=== PATIENT | female | born 1970 | race Caucasian/White ===

== ENCOUNTER → 2020-05-10 10:00 | Outpatient (BNVA) | payer MEDICAID, SELFPAY | PROVIDERS: Family Provider Family Medicine; PCP Family Medicine; Visit Provider Internal Medicine | DX: B18.2 Chronic viral hepatitis C (principal); B19.20 Unspecified viral hepatitis C without hepatic coma; R10.11 Right upper quadrant pain; R76.8 Other specified abnormal immunological findings in serum; E78.5 Hyperlipidemia, unspecified; A08.4 Viral intestinal infection, unspecified | CPT/HCPCS: 80053; 85025; 87522; 87902 ==

== ENCOUNTER 2020-05-15 08:29 | Day surgery (SDC) | payer MEDICAID, SELFPAY ==
[2020-05-12 15:17] VITALS: BMI 31.6
[2020-05-15 08:41] VITALS: BP 128/96; PULSE 90; RESP 18; TEMP 37.1; O2SAT 96
[2020-05-15] MEDS: sodium chloride 0.9% 1,000 ML 30 ML IV (08:54)
--- NOTE | 2020-05-15 09:27 | ANES.PREANE2 ---
Pre-Anesthetic Assessment Pre-Anesthetic Assessment: Height/Weight: Height 1.65 m Weight 86.183 kg Temp Pulse Resp BP Pulse Ox 98.7 F 90 18 128/96 96 05/15/20 08:41 05/15/20 08:41 05/15/20 08:41 05/15/20 08:41 05/15/20 08:41 Preop Diagnosis: RUQ pain Proposed Procedure: Operation Date: 05/15/20 10:00 Proposed Procedures p EGD 22696 R10.11(Not Applicable) - Pablo Reyes MD Last intake: Intake Last Liquid Date 05/14/20 Last Liquid Time 23:30 Last Solid Date 05/14/20 Last Solid Time 20:30 Social: Social History: Tobacco and No alcohol Exam: Pre-Anes Outpt Exam: alert, oriented x 3, clear to auscultation bilaterally and regular rate & rhythm Airway: Submandibular: WNL Cervical ROM: WNL MP: 2 Dentition: Other (very poor) History/ROS: No significant history except as noted Pulmonary: Pulmonary: None reported CV/HEM: CV/HEM: Murmur : : None reported Hepatic: Hepatic: Hepatitis (C) GI: GI: GERD (occ) Metabolic: Metabolic: None reported Musc/skel: Musc/skel: Lower Back Pain and OA/DJD Neuropsych: Neuropsych: Anxiety and Depression Anesthetic Plan: ASA status: 3 Anesthesia: Anesthesia Evaluation and MAC Risk of > 500 ml blood loss (7ml/kg in children): No Meds/Allergies Current Medications: Current Medications Generic Name Dose Route Start Last Admin Trade Name Freq PRN Reason Stop Dose Admin Sodium Chloride 1,000 mls @ 30 ml s/hr 05/15/20 08:45 05/15/20 08:54 Sodium Chloride 0.9% IV 30 mls/hr .Q24H ANGELES Administration PFSH Anesthesia PFSH: Social History (Updated 05/10/20 @ 09:14 by EDDIE Reyes) Smoking and tobacco status: current every day smoker Marital status: / Number of children: 4 service: No History of recent travel: No Current gender identity: Female Data Anesthesia Cardiac Studies: No Data to Display
[2020-05-15 10:34] VITALS: BP 106/77; PULSE 75; RESP 16; TEMP 36.7; O2SAT 97
--- NOTE | 2020-05-15 10:41 | ANE.PACU2 ---
Inpatient post-anesthesia follow up: Airway intact: Yes Vital signs: Temperature 98.0 F Pulse Rate 75 Respiratory Rate 16 Blood Pressure 106/77 Pulse Oximetry 97 Oxygen Delivery Me thod Nasal Cannula Oxygen Flow Rate 2.0 Fraction of Inspir ed Oxygen Hydration adequate: Yes Nausea and vomiting: No Mental status: Baseline
[2020-05-15 10:49] VITALS: BP 132/74; PULSE 70; RESP 18; O2SAT 99
--- NOTE | 2020-05-17 12:31 | W.PM.OPSUD ---
Surgery/Procedure H&P Update DATE OF PROCEDURE: May 17, 2020 DATE H&P PERFORMED: 05/10/20 PREOP DIAGNOSIS: RUQ pain PLANNED PROCEDURE: Operation Date: 05/15/20 10:00 Proposed Procedures p EGD 19512 R10.11(Not Applicable) - Pablo Reyes MD
== END 2020-05-15 10:55 | disposition home or self-care (01) ==
PROVIDERS: Visit Provider Internal Medicine
PROC: 0DJ08ZZ Inspection of Upper Intestinal Tract, Via Natural or Artificial Opening Endoscopic (ICD-10-PCS; CPT 43235; principal; 2020-05-15 10:00)
DX: R10.11 Right upper quadrant pain (principal); B19.20 Unspecified viral hepatitis C without hepatic coma; K21.9 Gastro-esophageal reflux disease without esophagitis; M19.90 Unspecified osteoarthritis, unspecified site
CPT/HCPCS: 12345; 43235; J2001; J2704; J7030

== ENCOUNTER 2020-06-07 06:46 | Outpatient (CLI) | payer MEDICAID, SELFPAY ==
--- NOTE | 2020-06-07 08:00 | US_ITS ---
WS: [id number] RIGHT UPPER QUADRANT ULTRASOUND HISTORY: Nausea and vomiting. RIGHT upper quadrant pain, hepatitis C. COMPARISON: 04/06/2019 Liver: 15.5 cm in length. Normal size and echogenicity with no intrahepatic dilatation. No mass. Gallbladder: Normally distended gallbladder with no stones or wall thickening. CBD: 0.6 cm Pancreas: Normal size and echogenicity. Right kidney: 12.7 cm in length. Extrarenal pelvis on the RIGHT. No hydronephrosis or mass. Aorta and IVC: Unremarkable. No ascites. US/US gall bladder [id number] IMPRESSION: 1. Normal gallbladder. 2. Normal liver. 3. Common bile duct is top normal size.
== END 2020-06-07 06:47 | disposition home or self-care (01) ==
LOC: RAD 06:48
PROVIDERS: PCP Nurse Practitioner; Visit Provider Internal Medicine
DX: R10.11 Right upper quadrant pain (principal); R11.2 Nausea with vomiting, unspecified; B19.20 Unspecified viral hepatitis C without hepatic coma
CPT/HCPCS: 76705

== ENCOUNTER → 2020-07-20 16:10 | Outpatient (BNVA) | payer MEDICAID, SELFPAY | PROVIDERS: PCP Nurse Practitioner; Visit Provider Internal Medicine | DX: B18.2 Chronic viral hepatitis C (principal) | CPT/HCPCS: 87522 ==

== ENCOUNTER 2020-08-23 15:23 | Emergency (ER) | payer MEDICAID, SELFPAY ==
[2020-08-23 15:41] VITALS: BP 131/97; PULSE 103; RESP 18; TEMP 37.6; O2SAT 96; BMI 33.3
--- NOTE | 2020-08-23 15:48 | XRR_ITS ---
PROCEDURE INFORMATION: Exam: XR Chest, 1 View Exam date and time: 08/23/2020 4:14 PM Age: 50 years old Clinical indication: Cough TECHNIQUE: Imaging protocol: XR of the chest Views: Frontal portable upright view of the chest. COMPARISON: No relevant prior studies available. FINDINGS: Lungs: The lungs are clear bilaterally. The pulmonary vasculature is normal. Pleural space: No pleural effusion. No pneumothorax. Heart/Mediastinum: The heart is normal in size and contour. Bones/joints: No acute chest wall abnormality identified. XR/XR chest 1V portable [id number] IMPRESSION: No acute cardiopulmonary abnormality identified.
--- NOTE | 2020-08-23 15:55 | W.ED.GENADLT ---
HPI - General Adult General: Chief complaint: General Medical Stated complaint: COUGH/FEVER/CHILLS/THROAT PAIN/RUNNY NOSE Time Seen by Provider: 08/23/20 15:49 History of Present Illness: HPI narrative: Patient comes in complain about sore throat chills cough. States that she has not had any COVID exposure. MD complaint: Sore throat Onset (ago): day(s) Pain Consistency: constant Associated symptoms: Reports cough and fevers/chills; Deny chest pain, dyspnea, headache(s), nausea, rash or vomiting Review of Systems Const: Reports: fever(s) and chills; Denies: body aches Eyes: Denies: change in vision or blurry vision ENMT: Reports: throat pain; Denies: nasal congestion Card: Denies: chest pain or dyspnea on exertion Resp: Reports: productive cough (Clear); Denies: dyspnea or non-productive cough GI: Denies: abdominal pain, nausea or vomiting Musc: Denies: extremity pain Skin/Breast: Denies: rash Neuro: Denies: headache(s) Psych: Denies: anxiety or depression Bennie/Lymph: Denies: easy bruising PFS ED PFSH: Social History (Updated 08/23/20 @ 15:48 by Enio Cha RN) Smoking and tobacco status: current every day smoker Alcohol intake: never Substance/Drug Use: never Marital status: / Number of children: 4 service: No History of recent travel: No Current gender identity: Female Physical Exam Const: COMMON NORMALS: no acute distress, average body habitus and patient oriented x3 HENMT: COMMON NORMALS: normocephalic HEAD & SCALP: normal to inspection and normocephalic FACE & SINUS: normal facial exam THROAT: abnormal tonsil (White exudate on tonsils tender lymphadenopathy right side) Eye: COMMON NORMALS: conjunctivae normal GENERAL EYE: appearance normal, both eyes and all related structures CONJUNCTIVA: Yes conjunctivae normal Neck/C-Spine: COMMON NORMALS: no JVD Chest: COMMONS NORMALS: normal inspection of the chest Resp: COMMON NORMALS: normal respiratory effort and clear to auscultation bilaterally AUSCULTATION: clear to auscultation bilaterally Cardio: COMMON NORMALS: no JVD, regular rate and regular rhythm RATE: regular rate RHYTHM: regular rhythm GI: COMMON NORMALS: Normal to inspection, nondistended, normoactive bowel sounds present Extremity: COMMON NORMALS: normal to inspection and full ROM Neuro: COMMON NORMALS: patient oriented x3 Course Vital Signs: Vital signs: Vital Signs Temperature 99.7 F H 08/23/20 15:41 Pulse Rate 88 08/23/20 17:09 Respiratory Rate 18 08/23/20 17:09 Blood Pressure 129/74 08/23/20 17:09 Pulse Oximetry 96 08/23/20 17:09 [facility] - General Adult Lab Data: Labs: Lab Results 08/23/20 Range/Units 16:14 Group A Strep Rapi d Positive H (Negative) Discharge Plan Discharge Patient Disposition: Home Clinical Impression: Acute streptococcal pharyngitis Condition: Stable Prescriptions: New Medrol (Angelito) 4 mg tablets,dose pack See Rx Instructions .ROUTE .COMPLEX Qty: 21 RF: 0 Keflex 500 mg capsule 500 mg PO TID 10 Days Qty: 30 RF: 0 No Action ibuprofen 200 mg capsule 800 mg PO PRN RF: 0 sofosbuvir-velpatasvir [Epclusa] 400-100 mg tablet 1 tab PO DAILY 84 Days Qty: 28 RF: 2 Dayquil See Rx Instructions .ROUTE .COMPLEX RF: 0 Discharge Orders: Discharge Order (Routine); Ordered 08/23/20 Ordered By: Master Lim Referrals: Cande Molina PA [Primary Care Provider] - Discharge Diet: Usual diet Discharge Activity: Increase activity as tolerated Patient Instructions: Strep Throat (ED) Activity Restrictions/Additional Instructions: Follow-up with medical provider as directed. Take medications as prescribed. Return to the ER or your medical provider if condition worsens. Please read and understand discharge instructions. If any questions ask please. Discharge Date/Time: 08/23/20 17:09 Coding Level of Care Code ED Seismograph Operator Helper for Dhaval Fwd Exam Comprehensive
[2020-08-23] MEDS: cephALEXin 500 mg Capsule PO (16:28)
[2020-08-23 16:44] LABS: Rapid Strep A Test Positive (Negative)
[2020-08-23 17:09] VITALS: BP 129/74; PULSE 88; RESP 18; O2SAT 96
== END 2020-08-23 17:09 | disposition home or self-care (01) ==
PROVIDERS: Emergency Provider Nurse Practitioner Family; PCP Nurse Practitioner
DX: J02.0 Streptococcal pharyngitis (principal); F17.210 Nicotine dependence, cigarettes, uncomplicated
CPT/HCPCS: 12345; 71045; 87880; 99281; 99283

== ENCOUNTER 2020-09-09 12:37 | Outpatient (CLI) | payer MEDICAID, SELFPAY ==
--- NOTE | 2020-09-09 | XRR_ITS ---
NOTE: Report was unsigned for reason: Order was edited. Original Signature date and time was: 09/09/20 @1333 PROCEDURE INFORMATION: Exam: XR Lumbosacral Spine, 2 or 3 Views Exam date and time: 09/09/2020 1:03 PM Age: 50 years old Clinical indication: Low back pain; Additional info: Chronic low back pain TECHNIQUE: Imaging protocol: XR of the lumbosacral spine, 2 or 3 views. COMPARISON: CT abdomen pelvis w con* [id number] 04/06/2019 11:25 AM FINDINGS: Vertebrae: Chronic DJD is present especially at the L4-L5 and L5-S1 levels with disc space narrowing sclerosis osteophyte formation and facet hypertrophy. There is no significant malalignment. No fracture or other acute abnormalities are seen. Soft tissues: Unremarkable. [facility] XR/XR lumbar spine 2-3V* [id number] IMPRESSION: DJD predominantly at L4-L5 and L5-S1. No acute abnormality.
== END 2020-09-09 12:38 | disposition home or self-care (01) ==
LOC: LAB 12:38
PROVIDERS: PCP Nurse Practitioner; Visit Provider Nurse Practitioner Family
DX: M54.5 Low back pain (principal); M47.816 Spondylosis without myelopathy or radiculopathy, lumbar region; M47.817 Spondylosis without myelopathy or radiculopathy, lumbosacral region
CPT/HCPCS: 72100; 72114

== ENCOUNTER → 2020-09-18 14:39 | Outpatient (BNVA) | payer MEDICAID, SELFPAY | PROVIDERS: PCP Nurse Practitioner; Visit Provider Psychiatry & Neurology Psychiatry | DX: F41.1 Generalized anxiety disorder (principal); F33.1 Major depressive disorder, recurrent, moderate; F17.200 Nicotine dependence, unspecified, uncomplicated | CPT/HCPCS: 99204 ==

== ENCOUNTER → 2020-09-21 08:25 | Outpatient (BNVA) | payer MEDICAID, SELFPAY | PROVIDERS: PCP Nurse Practitioner; Visit Provider Counselor Mental Health | DX: F41.1 Generalized anxiety disorder (principal) | CPT/HCPCS: 90834 ==

== ENCOUNTER → 2020-09-29 08:22 | Outpatient (BNVA) | payer MEDICAID, SELFPAY | PROVIDERS: PCP Nurse Practitioner; Visit Provider Counselor Mental Health | DX: M54.9 Dorsalgia, unspecified (principal); F41.1 Generalized anxiety disorder; F33.1 Major depressive disorder, recurrent, moderate; M51.16 Intervertebral disc disorders with radiculopathy, lumbar region; M51.36 Other intervertebral disc degeneration, lumbar region; M47.816 Spondylosis without myelopathy or radiculopathy, lumbar region; F17.210 Nicotine dependence, cigarettes, uncomplicated | CPT/HCPCS: 90834; 99203 ==

== ENCOUNTER 2020-11-04 09:06 | Emergency (ER) | payer MEDICAID, SELFPAY ==
[2020-11-04 09:42] VITALS: BP 111/87; PULSE 76; RESP 18; TEMP 36.5; O2SAT 98; BMI 31.6
--- NOTE | 2020-11-04 09:59 | XRR_ITS ---
PROCEDURE INFORMATION: Exam: XR Lumbosacral Spine, 2 or 3 Views Exam date and time: 11/04/2020 10:40 AM Age: 50 years old Clinical indication: Low back pain; Additional info: Lbp TECHNIQUE: Imaging protocol: XR of the lumbosacral spine, 2 or 3 views. COMPARISON: CR XR lumbar spine 2-3V* [id number] 09/09/2020 12:57 PM FINDINGS: Bones/joints: No fracture, dislocation or other acute bone or joint abnormalities are seen. Chronic degenerative changes are present especially at the L5-S1 level with disc space narrowing sclerosis and osteophyte formation. There is sclerosis and narrowing of the lower lumbar facet joints. There is no significant malalignment. Soft tissues: Unremarkable. XR/XR lumbar spine 2-3V* [id number] IMPRESSION: Chronic degenerative joint disease especially at the L4-L5 and L5-S1 facet joints and L5-S1 disc.
[2020-11-04] MEDS: orphenadrine 30 mg/mL Inj 2 mL 60 MG IM (10:23)
--- NOTE | 2020-11-04 10:39 | W.ED.BACK ---
HPI - Back Pain/Injury General: Chief Complaint: Back Pain/Injury Stated Complaint: lower back pain Time Seen by Provider: 11/04/20 09:36 Source: patient Mode of arrival: ambulatory Limitations: no limitations History of Present Illness: HPI Narrative: Pleasant 50-year-old female patient presents to the emergency department with 2 to 3-hour onset of low back pain. She has history of chronic low back pain, previously under the care of pain management but reports was terminated for unknown reason, she is not sure why. 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 She reports MRI has never been completed. She reports no change in her pain today with exception that it is worse. She denies trauma, fall or injury. States got up from bed this morning when she felt a twinge in her back. She denies change of radiculopathy symptoms to the left lower extremity. She denies urinary or bowel incontinence. Denies left lower extremity weakness, reports history of degenerative disc disease. MD elicited complaint: back pain Pertinent past history: prior back pain Onset (ago): hour(s) (2-3) Timing: constant Severity: moderate Similar Symptoms Previously: Yes Quality: burning, dull, aching, spasming and throbbing Location: lumbar spine Radiation: buttocks Exacerbating factors: movement and walking Relieving factors: immobilization Context: turning/twisting Associated symptoms: Reports tingling/numbness/burning (tingling/burning to the LLE, chronic, no change); Deny abdominal pain, chills, dysuria, fever(s), nausea or vomiting Treatments prior to arrival: NSAIDS Work related injury: No Review of Systems General: Reports: 10 or more systems reviewed and unremarkable except in HPI and below Const: Denies: fever(s), chills or diaphoresis Eyes: Denies: blurry vision or eye redness ENMT: Denies: throat pain, dental pain or disequilibrium Card: Denies: chest pain, palpitations or irregular heart rhythm Resp: Denies: dyspnea, productive cough, non-productive cough or wheezing GI: Denies: abdominal pain, nausea or vomiting : Denies: difficulty voiding or dysuria Musc: Reports: back pain; Denies: neck pain, joint pain, joint swelling or muscle weakness Skin/Breast: Denies: rash, pruritus, skin tenderness or changes in skin color Neuro: Denies: headache(s), weakness in extremities or behavioral changes Psych: Denies: anxiety or depression Bennie/Lymph: Denies: easy bruising PFSH ED PFSH: Social History Smoking and tobacco status: smoker, details unknown cigarettes Packs smoked per day: 0.5 Years cigarettes smoked: 7 Quit status (tobacco): has tried quititng Number of times tried to quit tobacco: 4 Second hand smoke exposure: No Alcohol intake: never Marital status: / Number of children: 4 service: No History of recent travel: No Current gender identity: Female Physical Exam Const: COMMON NORMALS: no acute distress, patient oriented x3, healthy appearing and alert GENERAL APPEARANCE: cooperative and well hydrated NUTRITIONAL APPEARANCE: obese ORIENTATION/CONSCIOUSNESS: Yes awake, Yes oriented to person, Yes oriented to place and Yes oriented to time HENMT: COMMON NORMALS: normocephalic, atraumatic, Normal external nose present and moist oral mucous membranes HEAD & SCALP: normocephalic and atraumatic FACE & SINUS: normal facial exam and sinuses nontender NOSE: Normal external nose present Eye: COMMON NORMALS: Equal, round and reactive pupils present and EOMs intact bilaterally GENERAL EYE: appearance normal, both eyes and all related structures PUPIL: Yes Equal, round and reactive pupils present Neck/C-Spine: COMMON NORMALS: full ROM, no lymphadenopathy and supple GENERAL: Yes normal visual inspection and Yes trachea midline CERVICAL SPINE: Yes cervical ROM normal, No pain with cervical ROM, No Cervical spine tenderness, No Paracervical muscle tenderness and No Trapezius muscle tenderness Lymph: LYMPHATIC: no lymphadenopathy noted Chest: COMMONS NORMALS: normal inspection of the chest and normal palpation of entire chest wall CHEST: No localized rib tenderness with anteroposterior compression Resp: COMMON NORMALS: normal respiratory effort, No retractions, No use of accessory muscles and clear to auscultation bilaterally EFFORT & INSPECTION: Yes able to speak in complete sentences and No uses accessory muscles AUSCULTATION: clear to auscultation bilaterally Cardio: COMMON NORMALS: regular rate, regular rhythm, S1 normal heart sound present, S2 normal heart sound present and Peripheral pulses 2+ throughout RATE: regular rate RHYTHM: regular rhythm HEART SOUNDS: S1 normal heart sound present and S2 normal heart sound present PERIPHERAL PULSES: Peripheral pulses 2+ throughout GI: COMMON NORMALS: Normal to inspection, nondistended, normoactive bowel sounds present, Soft to palpation and non-tender INSPECTION: Yes normal to inspection, No Abdominal wall edema and No abdominal distension PALPATION: Yes Soft to palpation : COMMON NORMALS: Yes no CVA tenderness BLADDER/KIDNEY EXAM: Yes no CVA tenderness Back/Pelvis: COMMON NORMALS: no CVA tenderness and thoracic and lumbar spine normal to inspection THORACIC SPINE/UPPER BACK: Yes normal to inspection and Yes paraspinal muscle spasm Thoracic paraspinal muscle spasm: left LUMBAR SPINE/LOWER BACK: Yes ROM limited, Yes pain with ROM, Yes lumbar spinal tenderness Lumbar spinal tenderness location: L2, L3, L4 and L5, Yes paraspinal muscle tenderness Lumbar paraspinal muscle tenderness: left, Yes paraspinal muscle spasm Lumbar paraspinal muscle spasm: left and Yes straight leg raise positive left PELVIS: No tenderness over symphysis pubis and Yes sciatic notch tenderness on the left SACROILIAC JOINTS: Yes SI joint(s) abnormal SI joint details: tender to palpation (left) and pain elicited by compression of iliac crest maneuver Extremity: COMMON NORMALS: normal to inspection and capillary refill normal Neuro: COMMON NORMALS: patient oriented x3 and no focal motor deficits SENSORIUM/ORIENTATION: Yes alert, Yes oriented to person, Yes oriented to place and Yes oriented to time SPEECH: speech normal GAIT: Yes Normal gait present MONOFILAMENT EXAM PERFORMED: Yes Monofilament Exam (small fiber function): L great toe: normal, L 3rd toe: normal, L 5th toe: normal, R great toe: normal, R 3rd toe: normal and R 5th toe: normal MOTOR EXAM: 5/5 motor strength present throughout Psych: COMMON NORMALS: mental status grossly normal, Normal thought process present and cooperative ACTIVITY/MOTOR BEHAVIOR: Yes appropriate eye contact THOUGHT PROCESS: Normal thought process present Skin: COMMON NORMALS: no rashes or lesions noted and turgor normal GENERAL SKIN EXAM: no rashes or lesions noted and turgor normal Course Reevaluation(s): Reevaluation #1: LBP after Norflex injection, reports improvement in pain Time: 11:30 Vital Signs: Vital signs: Vital Signs Temperature 97.7 F 11/04/20 09:42 Pulse Rate 76 11/04/20 09:42 Respiratory Rate 18 11/04/20 09:42 Blood Pressure 111/87 11/04/20 09:42 Pulse Oximetry 98 11/04/20 09:42 MDM - Back Pain/Injury Imaging Data^: Xray Ortho: Radiologist's impression: [address] [address] XRay Report Signed Patient: Rupa Berry Unit #: [id number] : 1970 Age/Sex: 50 / F ADM Date: 11/04/20 Loc: ER Room/Bed: Attending Dr: Ordering Provider/Ordering MD: Karol Shin Date of Service: 11/04/20 Procedure(s): XR lumbar spine 2-3V* 11304 Accession Number(s): [id number] Report Number: [id number] PROCEDURE INFORMATION: Exam: XR Lumbosacral Spine, 2 or 3 Views Exam date and time: 11/04/2020 10:40 AM Age: 50 years old Clinical indication: Low back pain; Additional info: Lbp TECHNIQUE: Imaging protocol: XR of the lumbosacral spine, 2 or 3 views. COMPARISON: CR XR lumbar spine 2-3V* [id number] 09/09/2020 12:57 PM FINDINGS: Bones/joints: No fracture, dislocation or other acute bone or joint abnormalities are seen. Chronic degenerative changes are present especially at the L5-S1 level with disc space narrowing sclerosis and osteophyte formation. There is sclerosis and narrowing of the lower lumbar facet joints. There is no significant malalignment. Soft tissues: Unremarkable. XR/XR lumbar spine 2-3V* [id number] IMPRESSION: Chronic degenerative joint disease especially at the L4-L5 and L5-S1 facet joints and L5-S1 disc. Dictated By: Yan Ramirez Signed By: Yan Ramirez Signed Date/Time: 11/04/20 1114 DD/ 1113 Discharge Plan Discharge Patient Disposition: Home Clinical Impression: Back pain of lumbar region with sciatica, Lumbar radiculopathy, chronic Condition: Stable Prescriptions: New Lidoderm 5 % adhesive patch,medicated 1 patch topical BID PRN (Reason: back pain) Qty: 30 RF: 0 Medrol (Angelito) 4 mg tablets,dose pack See Rx Instructions .ROUTE .COMPLEX Qty: 21 RF: 0 Changed tizanidine 2 mg tablet 2 mg PO QID PRN (Reason: muscle spasticity) Qty: 60 RF: 0 No Action ibuprofen 200 mg capsule 800 mg PO DAILY PRN (Reason: fever or pain) RF: 0 fluoxetine [Prozac] 20 mg capsule 20 mg PO DAILY Qty: 30 RF: 2 hydroxyzine HCl 50 mg tablet 50 mg PO QID PRN (Reason: anxiety) Qty: 120 RF: 2 sofosbuvir-velpatasvir [Epclusa] 400-100 mg tablet 1 tab PO DAILY 84 Days Qty: 28 RF: 2 Discharge Orders: Discharge ED (Routine); Ordered 11/04/20 Ordered By: Karol Shin Referrals: Cande Molina PA [Primary Care Provider] - Discharge Diet: Usual diet Discharge Activity: Limit activity as instructed Patient Instructions: Sciatica (ED), Acute Low Back Pain (ED), Degenerative Disc Disease (ED) Activity Restrictions/Additional Instructions: Return to the emergency department if you develop urinary/fecal incontinence, inability to feel your legs, bilateral leg weakness or other concerning symptoms Take tizanidine sparingly, do not drive or operate heavy machinery with use of medication due to sedative effects. Continue ibuprofen as needed for pain Take Medrol Dosepak with food to avoid upset stomach, take as directed Outpatient MRI has been ordered, follow-up with your family practice provider at [facility] next week, as scheduled Friday Coding Level of Care Code ED Permit Review Assistant for Chg Fwd Exam Comprehensive
[2020-11-04 11:34] VITALS: BP 135/106; PULSE 61; RESP 18; O2SAT 98
--- NOTE | 2020-11-08 12:06 | DCPLANNER ---
client portfolio manager had message to schedule an out patient MRI. client portfolio manager faxed order to centralized scheduling, will call for appointment information.
--- NOTE | 2020-11-10 10:45 | DCPLANNER ---
Patient has an MRI scheduled for Friday November 20, 2020 at 1:00. Centralized scheduling will call patient with appointment information.
--- NOTE | 2020-12-20 14:59 | DCPLANNER ---
Patient had an outpatient MRI scheduled for 11.20.20 - patient did attend the MRI.
== END 2020-11-04 11:36 | disposition home or self-care (01) ==
PROVIDERS: Emergency Provider Nurse Practitioner Family; PCP Nurse Practitioner
DX: M54.40 Lumbago with sciatica, unspecified side (principal); M54.16 Radiculopathy, lumbar region; G89.29 Other chronic pain; F17.210 Nicotine dependence, cigarettes, uncomplicated
CPT/HCPCS: 12345; 72100; 96372; 99281; 99283; J2360

== ENCOUNTER 2020-11-21 08:10 | Outpatient (CLI) | payer MEDICAID, SELFPAY ==
--- NOTE | 2020-11-21 08:26 | MR_ITS ---
WS: [id number] MRI LUMBAR SPINE NONCONTRAST TECHNIQUE: Sagittal T1, T2 and STIR imaging. Axial T1 and T2 imaging. CLINICAL INFORMATION: SCIATICA/LLE RADICULOPATHY COMPARISON: None. FINDINGS: Mild lumbar curve. No acute compression. Slight anterolisthesis L4 on L5. Disc space narrowing worse L5-S1 with endplate degenerative changes. L1-L2: Normal. L2-L3: Normal. L3-L4: No significant disc bulging. Spinal canal and foramen are patent. Mild facet arthropathy. L4-L5: Mild disc bulging with slight effacement of ventral thecal sac. Moderate facet arthropathy wit h small facet effusions. Foramen are patent. Slight narrowing of the right subarticular recess. L5-S1: Mild disc bulging with a shallow central protrusion. Tiny annular fissure. Slight effacement o f ventral thecal sac. Spinal canal and foramen are patent. Mild facet arthropathy. Visualized pelvic bony structures: Normal. Paravertebral soft tissues: Normal. Prominent right extrarenal pelvis. Small central protrusion C3-C4 with slight effacement of the ventral thecal sac. This is seen on the tableau administrator imaging. MR/MR lumbar spine wo con* [id number] IMPRESSION: 1. Mild lumbar curve. No acute compression. No high-grade central canal stenos is. Disc bulging with disc space narrowing worse L5-S1. 2. Shallow central protrusion L5-S1 with tiny annular fissure. Slight effaceme nt of ventral thecal sac. Spinal canal and foramen are patent. 3. Slight anterolisthesis L4 on L5. Mild annular bulging with slight effacemen t of the ventral thecal sac. Slight impingement traversing right L5 nerve root 4. Moderate facet arthropathy with small facet effusions consistent with synov itis. 5. Small central protrusion C3-C4 with slight effacement of the ventral thecal sac. This is seen on the tableau administrator imaging.
== END 2020-11-21 08:11 | disposition home or self-care (01) ==
LOC: RADWPI 08:13
PROVIDERS: PCP Nurse Practitioner; Visit Provider Anesthesiology Pain Medicine
DX: M54.40 Lumbago with sciatica, unspecified side (principal); M54.10 Radiculopathy, site unspecified; M50.21 Other cervical disc displacement, high cervical region; M47.816 Spondylosis without myelopathy or radiculopathy, lumbar region; M51.27 Other intervertebral disc displacement, lumbosacral region
CPT/HCPCS: 72148

== ENCOUNTER → 2021-02-16 15:36 | Outpatient (BNVA) | payer MEDICAID, SELFPAY | PROVIDERS: PCP Nurse Practitioner; Visit Provider Nurse Practitioner | DX: J02.9 Acute pharyngitis, unspecified (principal); J30.1 Allergic rhinitis due to pollen | CPT/HCPCS: 87071; 87880 ==

== ENCOUNTER 2021-03-13 20:56 | Emergency (ER) | payer MEDICAID, SELFPAY ==
[2021-03-13 21:00] VITALS: BP 130/92; PULSE 99; RESP 16; TEMP 36.5; O2SAT 98; BMI 33.3
[2021-03-13 21:05] VITALS: BP 138/97; PULSE 84; RESP 16; O2SAT 97
--- NOTE | 2021-03-13 21:08 | XR_ITS ---
WS: [id number] Portable AP upright chest, 03/13/2021 Clinical Data: weakness Comparison: Portable chest, 08/23/2020. Findings: No nodules, masses or effusions are seen. The heart is normal. The pulmonary vascularity is not increased. No pneumonia or pneumothorax is seen. XR/XR chest 1V portable [id number] Impression: Negative chest.
--- NOTE | 2021-03-13 21:09 | ECG_ITS ---
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 Measurements Intervals [place] Rate: 82 P: 23 VT: 156 QRS: 17 QRSD: 104 T: 20 QT: 362 QTc: 423 Interpretive Statements SINUS RHYTHM No previous ECG available for comparison Electronically Signed On 03-14-2021 7:41:32 CDT by Jenny Mckeon M.D. [email or web address]
--- NOTE | 2021-03-13 21:15 | CTR_ITS ---
PROCEDURE INFORMATION: Exam: CT Head Without Contrast Exam date and time: 03/13/2021 9:17 PM Age: 50 years old Clinical indication: Patient HX: Dizziness and general weakness TECHNIQUE: Imaging protocol: Computed tomography of the head without contrast. Radiation optimization: All CT scans at this facility use at least one of these dose optimization techniques: automated exposure control; mA and/or kV adjustment per patient size (includes targeted exams where dose is matched to clinical indication); or iterative reconstruction. COMPARISON: No relevant prior studies available. RADIATION DOSE METRICS: Total DLP (mGy-cm): 827.24 FINDINGS: Brain: Normal. No hemorrhage. Unremarkable white matter. No mass effect. Cerebral ventricles: No ventriculomegaly. Bones/joints: Unremarkable. No acute fracture. Paranasal sinuses: Multifocal mucosal thickening and small mucoid fluid throughout the paranasal sinuses. The mastoid sinuses and middle ear spaces are clear. Mastoid air cells: See Paranasal sinuses finding. Soft tissues: Unremarkable. CT/CT head wo con* [id number] IMPRESSION: 1. Unremarkable brain. 2. Scattered mucosal thickening and mucoid fluid in the paranasal sinuses. Radiation Dose CTDIVOL = (mGy): DLP = 827.24 (mGy-cm)
--- NOTE | 2021-03-13 21:15 | W.ED.GENADLT ---
HPI - General Adult General: Chief complaint: General Medical Stated complaint: htn/dizziness Time Seen by Provider: 03/13/21 21:05 Source: patient Mode of arrival: ambulatory Limitations: no limitations History of Present Illness: HPI narrative: 50-year-old female states over the last 2 days she has just been feeling generally weak. She states that anytime she stands she feels lightheaded like she may pass out. She denies any chest pain. She denies any headache. She denies any focal weakness or vertigo. She states that she felt like her blood pressure may be high and we went to give her blood pressure checked out. She denies any fevers. Patient able ambulate here without any difficulty. Denies any vomiting or diarrhea. Denies any worsening improving factors. Associated symptoms: Deny chest pain, dyspnea, headache(s), nausea, rash or vomiting Review of Systems Const: Denies: fever(s), chills, body aches or change in appetite Eyes: Denies: blurry vision or eye discomfort ENMT: Denies: throat pain or dental pain Card: Denies: chest pain Resp: Denies: dyspnea GI: Denies: abdominal pain, nausea, vomiting or diarrhea : Denies: dysuria Musc: Denies: neck pain or back pain Skin/Breast: Denies: rash Neuro: Reports: weakness in extremities; Denies: headache(s) Psych: Denies: depression Bennie/Lymph: Denies: easy bruising All/Imm: Denies: urticaria PFSH ED PFSH: Social History Smoking and tobacco status: smoker, details unknown cigarettes Packs smoked per day: 0.5 Years cigarettes smoked: 7 Quit status (tobacco): has tried quititng Number of times tried to quit tobacco: 4 Second hand smoke exposure: No Alcohol intake: never Marital status: / Number of children: 4 service: No History of recent travel: No Current gender identity: Female Physical Exam Const: COMMON NORMALS: no acute distress, patient oriented x3 and healthy appearing HENMT: COMMON NORMALS: normocephalic and atraumatic HEAD & SCALP: normocephalic and atraumatic Eye: COMMON NORMALS: Equal, round and reactive pupils present and EOMs intact bilaterally PUPIL: Yes Equal, round and reactive pupils present Neck/C-Spine: COMMON NORMALS: full ROM and supple Chest: COMMONS NORMALS: normal inspection of the chest and normal palpation of entire chest wall Resp: COMMON NORMALS: normal respiratory effort, No retractions, No use of accessory muscles and clear to auscultation bilaterally AUSCULTATION: clear to auscultation bilaterally Cardio: COMMON NORMALS: regular rate, regular rhythm and No murmurs present (Cardio) RATE: regular rate RHYTHM: regular rhythm GI: COMMON NORMALS: Normal to inspection, nondistended, normoactive bowel sounds present, Soft to palpation, non-tender and no masses PALPATION: Yes Soft to palpation Extremity: COMMON NORMALS: normal to inspection and full ROM Neuro: COMMON NORMALS: patient oriented x3, moves all extremities and no focal motor deficits CRANIAL NERVES: Yes CN normal except as noted SPEECH: speech normal GAIT: Yes Normal gait present MOTOR EXAM: 5/5 motor strength present throughout Psych: COMMON NORMALS: mental status grossly normal, Normal thought process present and cooperative THOUGHT PROCESS: Normal thought process present Skin: COMMON NORMALS: no rashes or lesions noted and no wounds GENERAL SKIN EXAM: no rashes or lesions noted Course Vital Signs: Vital signs: Vital Signs Temperature 97.7 F 03/13/21 21:00 Pulse Rate 84 03/13/21 21:05 Respiratory Rate 16 03/13/21 21:05 Blood Pressure 138/97 03/13/21 21:05 Pulse Oximetry 97 03/13/21 21:05 MDM - General Adult MDM Narrative: Medical decision making narrative: Rupa presents here with weakness was found to have a acute cystitis. She feels much improved after IV fluids. Patient's blood work here is otherwise normal. She has no signs of stroke and is able to ambulate here without any difficulty. Patient given Rocephin here and will prescribe Keflex for home. She is to follow-up with PCP in 3 to 5 days and return to the ER if worsening. She understands and agrees to plan. Lab Data: Labs: Lab Results 03/13/21 03/13/21 03/13/21 Range/Units 21:26 21:26 21:30 WBC 10.8 H (4.0-10.0) 10^3/ uL RBC 4.37 (4.1-5.3) 10^6/u L Hgb 12.8 (11.5-15.3) g/dL Hct 39.8 (37.0-47.0) % MCV 91.1 (81-99) fL MCH 29.3 (28.0-34.0) pg MCHC 32.2 (30.0-36.0) g/dL RDW 13.7 (12.1-15.1) % Plt Count 307 (130-400) 10^3/c mm MPV 10.3 (7.4-10.4) fL Neut % (Auto) 43.7 % Lymph % (Auto) 39.8 % Douglas % (Auto) 7.6 % Eos % (Auto) 7.7 % Baso % (Auto) 0.7 % Neut # (Auto) 4.70 (1.8-7.7) 10^3/u L Lymph # (Auto) 4.3 (0.8-4.8) 10^3/u L Douglas # (Auto) 0.8 (0.2-0.9) 10^3/u L Eos # (Auto) 0.8 (0.0-0.8) 10^3/u L Baso # (Auto) 0.1 (0.0-0.1) 10^3/u L Nucleated RBC % (a uto) 0 % Nucleated RBCs # 0.0 /100WBC Sodium 137 (136-145) mmol/L Potassium 4.0 (3.5-5.1) mmol/L Chloride 104 (98-107) mmol/L Carbon Dioxide 24 (22-29) mmol/L Anion Gap 13.0 (5-19) BUN 14 (6-20) mg/dL Creatinine 0.5 (0.5-0.9) mg/dL GFR Calculation 131.7 H (90-130) mL/min Glucose 110 (65-115) mg/dL Calculated Osmolal ity 285 (285-295) mOsm/k g Calcium 8.4 L (8.5-10.5) mg/dL Total Bilirubin 0.2 (0.15-1.2) mg/dL AST 16 (0-32) U/L ALT 10 (0-33) U/L Alkaline Phosphata se 76 (35-105) IU/L Total Protein 6.1 L (6.6-8.7) g/dL Albumin 3.6 (3.5-5.2) g/dL Globulin 2.5 (1.3-4.6) g/dL TSH 3.34 (0.27-4.20) uIU/ mL Urine Color Yellow (Yellow) Urine Appearance Clear (CLEAR) Urine pH 6 (5-7) Ur Specific Gravit y 1.015 (1.005-1.030) Urine Protein Neg (Negative) Urine Glucose (UA) Norm (Normal) Urine Ketones Negative (Negative) Urine Blood Neg (Negative) Urine Nitrate Positive H (Negative) Urine Bilirubin Neg (Negative) Urine Urobilinogen Norm (Negative) mg/dL Ur Leukocyte Katarzyna ase 1+ H (Negative) Urine RBC 0-4 H (0-2) /hpf Urine WBC 15-25 H (0-5) /hpf Ur Squamous Epith Cells 0-4 H (0-5) /hpf Amorphous Sediment 1+ /hpf Urine Bacteria 4+ H (NONE) /hpf Imaging Data^: CXR: Attestation: I personally reviewed and interpreted this imaging study as follows: My impression: no acute abnormality EKG Data^: EKG 1: Attestation: I personally reviewed and interpreted this EKG as follows: EKG interpretation date: 03/13/21 EKG interpretation time: 21:27 Interpretation: nsr hr [address] or t wave abnormalities qrs 104 qtc 400 Computer generated interpretation: Head CT 03/13/21 21:15 IMPRESSION: 1. Unremarkable brain. 2. Scattered mucosal thickening and mucoid fluid in the paranasal sinuses. Radiation Dose CTDIVOL = (mGy): DLP = 827.24 (mGy-cm) Discharge Plan Discharge Patient Disposition: Home Clinical Impression: Acute cystitis Qualifiers: Hematuria presence: without hematuria Qualified Code(s): N30.00 - Acute cystitis without hematuria Condition: Stable Prescriptions: New cephalexin 500 mg capsule 500 mg PO TID 7 Days Qty: 21 RF: 0 No Action albuterol sulfate [ProAir HFA] 90 mcg/actuation HFA aerosol inhaler 2 puff inhalation QID PRN (Reason: shortness of breath or wheezing) Qty: 6.7 RF: 0 hydroxyzine HCl 50 mg tablet 50 mg PO QID PRN (Reason: anxiety) Qty: 120 RF: 2 ibuprofen 200 mg Tablet 200 - 400 mg PO Q6H PRN (Reason: pain/headache) RF: 0 Singulair 10 mg tablet 10 mg PO DAILY@0800 RF: 0 Prozac 20 mg capsule 20 mg PO DAILY@0800 RF: 0 Discharge Orders: Discharge ED (Routine); Ordered 03/13/21 Ordered By: Taras Sherman Referrals: Cande Molina PA [Primary Care Provider] - 1-3 days Discharge Diet: Advance as tolerated Discharge Activity: Resume usual activity Patient Instructions: Urinary Tract Infection in Women (ED) Coding Level of Care Code ED Dental Hygiene Teacher for Amyg Fwd Exam Comprehensive
[2021-03-13] MEDS: sodium chloride 0.9% 1,000 ML 999 ML IV (21:29)
[2021-03-13 21:43] LABS: Basophils # 0.1 10^3/uL (0.0-0.1); Basophils % 0.7 %; Eosinophils # 0.8 10^3/uL (0.0-0.8); Eosinophils % 7.7 %; Hematocrit 39.8 % (37.0-47.0); Hemoglobin 12.8 g/dL (11.5-15.3); Lymphocytes # 4.3 10^3/uL (0.8-4.8); Lymphocytes % 39.8 %; Mean Corpuscular HGB Conc 32.2 g/dL (30.0-36.0); Mean Corpuscular Hemoglobin 29.3 pg (28.0-34.0); Mean Corpuscular Volume 91.1 fL (81-99); Mean Platelet Volume 10.3 fL (7.4-10.4); Monocytes # 0.8 10^3/uL (0.2-0.9); Monocytes % 7.6 %; Neutrophils % 43.7 %; Nucleated Red Blood Cells % 0 %; Platelet Count 307 10^3/cmm (130-400); Red Blood Count 4.37 10^6/uL (4.1-5.3); Red Cell Distribution Width 13.7 % (12.1-15.1); White Blood Count 10.8 10^3/uL (4.0-10.0)
[2021-03-13 21:57] LABS: Add Urine Microscopic? YES; Bilirubin Urine Neg (Negative); Blood Urine Neg (Negative); Glucose Urine UA Norm (Normal); Ketones Urine Negative (Negative); Leukocyte Esterase Urine 1+ (Negative); Nitrate Urine Positive (Negative); Protein Urine Neg (Negative); Specific Gravity, Urine 1.015 (1.005-1.030); Urine Appearance Clear (CLEAR); Urine Color Yellow (Yellow); Urobilinogen Urine Norm (Negative); pH Urine 6 (5-7)
[2021-03-13 21:59] LABS: RBC Urine 0-4 /hpf (0-2); WBC Urine 15-25 /hpf (0-5)
[2021-03-13 22:00] LABS: Add Urine Culture? Yes; Amorphous Sediment Urine 1+ /hpf; Bacteria Urine 4+ /hpf; Squamous Epithelial Cell Urine 0-4 /hpf (0-5)
[2021-03-13 22:16] LABS: Alanine Aminotransferase 10 U/L (0-33); Albumin Level 3.6 g/dL (3.5-5.2); Alkaline Phosphatase 76 IU/L (35-105); Blood Urea Nitrogen 14 mg/dL (6-20); Calcium 8.4 mg/dL (8.5-10.5); Carbon Dioxide 24 mmol/L (22-29); Chloride 104 mmol/L (98-107); Globulin 2.5 g/dL (1.3-4.6); Glomerular Filtration Rate 131.7 mL/min (90-130); Glucose 110 mg/dL (65-115); Osmolality Calculated 285 mOsm/kg (285-295); Sodium 137 mmol/L (136-145); Thyroid Stimulating Hormone 3.34 uIU/mL (0.27-4.20); Total Bilirubin 0.2 mg/dL (0.15-1.2); Total Protein 6.1 g/dL (6.6-8.7)
[2021-03-13 22:17] LABS: Aspartate Amino Transferase 16 U/L (0-32)
[2021-03-13] MEDS: cefTRIAXone 1,000 MG in lidocaine 1% 2.1 ML 3 MG IM (22:36)
[2021-03-13 23:07] VITALS: BP 147/99; PULSE 84; RESP 18; O2SAT 97
== END 2021-03-13 23:05 | disposition home or self-care (01) ==
PROVIDERS: Emergency Provider Emergency Medicine; PCP Nurse Practitioner
DX: N30.00 Acute cystitis without hematuria (principal); F17.210 Nicotine dependence, cigarettes, uncomplicated
CPT/HCPCS: 70450; 71045; 80053; 81001; 84443; 85025; 87077; 87086; 87186; 93005; 96360; 96372; 99284; J0696; J7030

== ENCOUNTER 2021-04-07 09:33 | Outpatient (CLI) | payer MEDICAID, SELFPAY ==
--- NOTE | 2021-04-07 | XRR_ITS ---
PROCEDURE INFORMATION: Exam: XR Left Knee Exam date and time: 04/07/2021 9:56 AM Age: 50 years old Clinical indication: Pain; Prior surgery; Surgery date: 6+ months; Surgery type: Left knee; Patient HX: No recent knee injury or trauma TECHNIQUE: Imaging protocol: XR Left knee. Views: 3 views. COMPARISON: No relevant prior studies available. FINDINGS: Bones/joints: A 1.4 cm calcification projects along the posterior aspect of the knee joint which may represent a loose body in the joint. No fracture or other acute abnormalities are seen. Chronic degenerative changes are present with joint space narrowing and osteophyte formation. Soft tissues: Normal. XR/XR knee LT 3V* [id number] IMPRESSION: 1. No acute abnormality. 2. Chronic degenerative osteoarthritis. 3. 1.4 cm calcification projects on the posterior aspect of the knee joint which may represent a loose body.
== END 2021-04-07 09:34 | disposition home or self-care (01) ==
LOC: RAD 09:44
PROVIDERS: PCP Nurse Practitioner; Visit Provider Nurse Practitioner Family
DX: M25.562 Pain in left knee (principal); M17.12 Unilateral primary osteoarthritis, left knee
CPT/HCPCS: 73562

== ENCOUNTER 2021-04-24 07:54 | Outpatient (CLI) | payer MEDICAID, SELFPAY ==
--- NOTE | 2021-04-24 08:02 | MM_ITS ---
WS: [id number] BILATERAL DIGITAL DIAGNOSTIC MAMMOGRAM MAMMOGRAPHY WITH CAD CLINICAL INFORMATION: REBECCA NIPPLE DISCHARGE COMPARISON: None. TECHNIQUE: Bilateral CC, MLO, and ML views. FINDINGS: Scattered fibroglandular densities bilaterally. No suspicious focal mass, asymmetry, calcifications, or architectural distortion. No visualized suba reolar mammographic lesions. Ultrasound is pending. ULTRASOUND BREAST BILATERAL TECHNIQUE: Ultrasound bilateral breast focused area of concern. CLINICAL INFORMATION: REBECCA NIPPLE DISCHARGE COMPARISON: None. FINDINGS: Ultrasound both breast at the areola. No evidence of subareolar mass or lesion bilaterally. No lesion s to target for biopsy. No suspicious findings bilaterally. MM/[place] [id number] IMPRESSION: BI-RADS: 2-Benign FOLLOW UP: 1 Year Follow-up Recommend return to annual screening mammography.
== END 2021-04-24 07:55 | disposition home or self-care (01) ==
LOC: RADSHAW 07:57
PROVIDERS: PCP Nurse Practitioner Family; Visit Provider Nurse Practitioner Family
DX: N64.52 Nipple discharge (principal)
CPT/HCPCS: 76642; 77066

== ENCOUNTER → 2021-05-15 09:23 | Outpatient (BNVA) | payer MEDICAID, SELFPAY | PROVIDERS: PCP Nurse Practitioner Family; Visit Provider Nurse Practitioner Family | DX: B18.2 Chronic viral hepatitis C (principal) | CPT/HCPCS: 87902 ==

== ENCOUNTER 2021-07-03 10:20 | Emergency (ER) | payer MEDICAID, SELFPAY ==
[2021-07-03 11:31] VITALS: BP 171/104; PULSE 81; RESP 18; TEMP 36.8; O2SAT 96; BMI 33.3
--- NOTE | 2021-07-03 11:42 | ED_ITS ---
HPI - General Adult General: Chief complaint: General Medical Stated complaint: Swelling on arm, Jaw hurts, Prior bee sting thisAM Time Seen by Provider: 07/03/21 11:41 History of Present Illness: HPI narrative: Patient is a 51-year-old female comes to the ED with bee sting. Patient says this morning around 8 AM she was stung by a bee in her right shoulder blade region. She now has pain and swelling in her right arm and shoulder. She denies being allergic to any bees. Denies any shortness of breath, trouble breathing or lip or tongue swelling. She has not taken any medication before coming to the ED. Associated symptoms: Deny chest pain, dyspnea, headache(s), nausea, rash, palpitations or vomiting Review of Systems Const: Denies: fever(s), chills or fatigue Eyes: Denies: change in vision or eye discomfort ENMT: Denies: throat pain, odynophagia, nasal discharge or nasal congestion Card: Denies: chest pain, palpitations, edema, swelling of feet/ankles, dyspnea on exertion or orthopnea Resp: Denies: dyspnea, productive cough or non-productive cough GI: Denies: abdominal pain, nausea, vomiting, diarrhea, constipation or hematochezia : Denies: flank pain, dysuria or hematuria Musc: Reports: extremity swelling (right arm); Denies: neck pain or back pain Skin/Breast: Reports: new lesions (bee sting on right shoulder blade); Denies: rash Neuro: Denies: headache(s), numbness in extremities or weakness in extremities [facility] PFSH: Medical History Hepatitis C Social History Smoking and tobacco status: current every day smoker cigarettes Packs smoked per day: 0.5 Years cigarettes smoked: 7 Quit status (tobacco): has tried quititng Number of times tried to quit tobacco: 4 Second hand smoke exposure: No Alcohol intake: never Marital status: / Number of children: 4 service: No History of recent travel: No Current gender identity: Female Physical Exam Const: COMMON NORMALS: no acute distress, patient oriented x3, healthy appearing and alert GENERAL APPEARANCE: cooperative and comfortable HENMT: COMMON NORMALS: normocephalic HEAD & SCALP: normocephalic FACE & SINUS: normal facial exam MOUTH: Normal oral and palatal mucosa present, lip normal and tongue normal THROAT: posterior oropharynx normal and uvula midline Eye: COMMON NORMALS: Equal, round and reactive pupils present PUPIL: Yes Equal, round and reactive pupils present Neck/C-Spine: COMMON NORMALS: supple GENERAL: Yes normal visual inspection Resp: COMMON NORMALS: normal respiratory effort, No retractions, No use of accessory muscles and clear to auscultation bilaterally AUSCULTATION: clear to auscultation bilaterally Cardio: COMMON NORMALS: regular rate, regular rhythm, S1 normal heart sound present, S2 normal heart sound present, No gallops present (Cardio), No clicks present (Cardio), No murmurs present (Cardio) and Peripheral pulses 2+ throughout RATE: regular rate RHYTHM: regular rhythm HEART SOUNDS: S1 normal heart sound present and S2 normal heart sound present PERIPHERAL PULSES: Peripheral pulses 2+ throughout GI: COMMON NORMALS: Normal to inspection, nondistended, normoactive bowel sounds present, Soft to palpation, non-tender and no masses PALPATION: Yes Soft to palpation : COMMON NORMALS: Yes no CVA tenderness BLADDER/KIDNEY EXAM: Yes no CVA tenderness Back/Pelvis: COMMON NORMALS: no CVA tenderness Extremity: COMMON NORMALS: normal to inspection Neuro: COMMON NORMALS: patient oriented x3 and moves all extremities SENSORIUM/ORIENTATION: Yes alert Skin: NARRATIVE SKIN EXAM: Patient has small superficial maculopapular pruritic bug bite on right shoulder. No other significant findings on the skin. GENERAL SKIN EXAM: dry skin Course Vital Signs: Vital signs: Vital Signs Temperature 98.2 F 07/03/21 11:31 Pulse Rate 81 07/03/21 11:31 Respiratory Rate 18 07/03/21 11:31 Blood Pressure 171/104 07/03/21 11:31 Pulse Oximetry 96 07/03/21 11:31 MDM - General Adult MDM Narrative: Medical decision making narrative: Patient is a 51-year-old female comes to the ED with a bee sting on right shoulder blade. She is complaining of having some right arm swelling. Denies any shortness of breath, lip or tongue swelling. Exam is benign and shows a small insect sting to her right shoulder blade. No other acute findings. Vitals are stable. Patient was given a dose of Benadryl and a steroid while here in the ED. diagnosed with a bee sting. She was then discharged home with a prescription for prednisone and Benadryl. Follow-up with PCP in 7 to 10 days reevaluation. Return to ED precautions given. Patient understood agree with plan. Discharge Plan Discharge Patient Disposition: Home Clinical Impression: Bee sting Qualifiers: Encounter type: initial encounter Injury intent: accidental or unintentional Qualified Code(s): T63.441A - Toxic effect of venom of bees, accidental (unintentional), initial encounter Condition: Stable Prescriptions: New prednisone 50 mg tablet 50 mg PO DAILY 4 Days Qty: 4 RF: 0 Benadryl Allergy 25 mg tablet 25 mg PO Q8H PRN (Reason: allergic reaction) Qty: 30 RF: 0 No Action albuterol sulfate [ProAir HFA] 90 mcg/actuation HFA aerosol inhaler 2 puff inhalation QID PRN (Reason: shortness of breath or wheezing) Qty: 6.7 RF: 0 ibuprofen 200 mg Tablet 200 - 400 mg PO Q6H PRN (Reason: pain/headache) RF: 0 Singulair 10 mg tablet 10 mg PO DAILY@0800 RF: 0 Prozac 20 mg capsule 20 mg PO DAILY@0800 RF: 0 Discharge Orders: Discharge ED (Routine); Ordered 07/03/21 Ordered By: Dmitriy Salgado Referrals: Nitza Mcghee FNP [Primary Care Provider] - Discharge Diet: Regular Discharge Activity: Resume usual activity Patient Instructions: Insect Bite or Sting (ED) Coding Level of Care Code ED Hourly Sign Language Interpreter for Dhaval Fwd Exam Comprehensive
[2021-07-03] MEDS: diphenhydrAMINE 25 mg Capsule PO (12:12)
== END 2021-07-03 12:20 | disposition home or self-care (01) ==
PROVIDERS: Emergency Provider Physician Assistant; PCP Nurse Practitioner Family
DX: T63.441A Toxic effect of venom of bees, accidental (unintentional), initial encounter (principal); Z86.19 Personal history of other infectious and parasitic diseases; F17.210 Nicotine dependence, cigarettes, uncomplicated
CPT/HCPCS: 96374; 99283; J2930

== ENCOUNTER 2021-10-01 09:46 | Outpatient (CLI) | payer MEDICAID, SELFPAY ==
--- NOTE | 2021-10-01 11:00 | MR_ITS ---
WS: [id number] MRI LUMBAR SPINE NONCONTRAST HISTORY: LUMBOSACRAL DISC DISORDER W/ radiculopathy, bilateral leg pain. COMPARISON: 11/21/2020 TECHNIQUE: Sagittal and axial multisequence imaging is submitted. T11 hemangioma. L4 anterolisthesis by 4 mm. Mild disc space narrowing and desiccation at L4-5 and L5-S1. No fractures . There is a small amount of marrow edema within the L5 pedicles bilaterally in the facet joints, gre atest on the LEFT. Conus terminates normally at L1. L1-L2: Normal. L2-L3: Normal. L3-L4: Mild ligamentum flavum and facet arthritis. Small amount of fluid in the facet joints. No sten osis. L4-L5: Mild annular disc bulging with mild effacement of the ventral thecal sac. Bilateral facet join t arthritis with increasing fluid and synovitis. Facet joints now measure up to 4 mm, greatest on the RIGHT. Facet joint cyst on the RIGHT measures 7.5 mm and extends posterior from the facet joint. Mod erate ligamentum flavum hypertrophy and facet arthritis. There is only mild foraminal narrowing. L5-S1: Mild annular disc bulge with a central disc protrusion and annular fissure. Disc protrusion do es not contact the S1 nerve roots. There is no contact on the nerve roots. Mild facet arthritis. Moderate sized extrarenal pelves. MR/MR lumbar spine wo con* [id number] IMPRESSION: 1. Mild progression of degenerative facet disease at L4-5 with increasing syno vitis. Facet joints are widened at L4-5 now measuring up to 4 mm on the RIGHT. This may indicate instability. 2. L4 anterolisthesis by 4 mm. 3. Mild foraminal narrowing at L4-5. 4. Central disc protrusion at L5-S1 does not contact the S1 nerve roots.
== END 2021-10-01 09:47 | disposition home or self-care (01) ==
PROVIDERS: PCP Nurse Practitioner Family; Visit Provider Family Medicine
DX: M51.17 Intervertebral disc disorders with radiculopathy, lumbosacral region (principal); M51.27 Other intervertebral disc displacement, lumbosacral region; M51.36 Other intervertebral disc degeneration, lumbar region; M65.9 Synovitis and tenosynovitis, unspecified
CPT/HCPCS: 72148

== ENCOUNTER → 2021-12-25 10:19 | Outpatient (BNVA) | payer MEDICAID, SELFPAY | PROVIDERS: PCP Nurse Practitioner Family; Visit Provider Registered Nurse Neonatal Intensive Care | DX: Z20.822 Contact with and (suspected) exposure to COVID-19 (principal) | CPT/HCPCS: 87635 ==

== ENCOUNTER 2022-03-19 19:28 | Emergency (ER) | payer MEDICAID, SELFPAY ==
[2022-03-19 19:35] VITALS: PULSE 75; RESP 19; TEMP 36.5; O2SAT 99; BMI 33.3
--- NOTE | 2022-03-19 20:07 | W.ED.BACK ---
HPI - Back Pain/Injury General: Chief Complaint: Back Pain/Injury Stated Complaint: drainage form surgical site Time Seen by Provider: 03/19/22 19:42 Source: patient Mode of arrival: ambulatory Limitations: no limitations History of Present Illness: 51-year-old female states that she had lumbar spine surgery earlier this month she had a drain placed that got pulled last week. She had no issues today she had a small amount of yellowish drainage from the site where the drain was pulled. She denies any pain she has no active drainage currently no redness or cellulitis. She denies any fevers denies any worsening proving factors. Associated symptoms: Deny abdominal pain, chills, dysuria, fever(s), nausea or vomiting Review of Systems Const: Denies: fever(s), chills, body aches or change in appetite Eyes: Denies: blurry vision or eye discomfort ENMT: Denies: throat pain or dental pain Card: Denies: chest pain Resp: Denies: dyspnea GI: Denies: abdominal pain, nausea, vomiting or diarrhea : Denies: dysuria Musc: Denies: neck pain or back pain Skin/Breast: Denies: rash Neuro: Denies: headache(s) Psych: Denies: depression Bennie/Lymph: Denies: easy bruising All/Imm: Denies: urticaria PFSH ED PFSH: Medical History Hepatitis C Social History Smoking and tobacco status: current every day smoker cigarettes Packs smoked per day: 0.5 Years cigarettes smoked: 7 Quit status (tobacco): has tried quititng Number of times tried to quit tobacco: 4 Second hand smoke exposure: No Alcohol intake: never Marital status: / Number of children: 4 service: No History of recent travel: No Current gender identity: Female Physical Exam Const: COMMON NORMALS: no acute distress, patient oriented x3 and healthy appearing HENMT: COMMON NORMALS: normocephalic and atraumatic HEAD & SCALP: normocephalic and atraumatic Eye: COMMON NORMALS: Equal, round and reactive pupils present and EOMs intact bilaterally PUPIL: Yes Equal, round and reactive pupils present Neck/C-Spine: COMMON NORMALS: full ROM and supple Chest: COMMONS NORMALS: normal inspection of the chest and normal palpation of entire chest wall Resp: COMMON NORMALS: normal respiratory effort, No retractions, No use of accessory muscles and clear to auscultation bilaterally AUSCULTATION: clear to auscultation bilaterally Cardio: COMMON NORMALS: regular rate, regular rhythm and No murmurs present (Cardio) RATE: regular rate RHYTHM: regular rhythm GI: COMMON NORMALS: Normal to inspection, nondistended, normoactive bowel sounds present, Soft to palpation, non-tender and no masses PALPATION: Yes Soft to palpation Back/Pelvis: OTHER: Incisions clean dry and intact area where she is at her drain pulled is clean dry and intact as well with no active drainage at this time Extremity: COMMON NORMALS: normal to inspection and full ROM Neuro: COMMON NORMALS: patient oriented x3, moves all extremities and no focal motor deficits Psych: COMMON NORMALS: mental status grossly normal, Normal thought process present and cooperative THOUGHT PROCESS: Normal thought process present Skin: COMMON NORMALS: no rashes or lesions noted and no wounds GENERAL SKIN EXAM: no rashes or lesions noted Course Vital Signs: Vital signs: Vital Signs Temperature 97.7 F 03/19/22 19:35 Pulse Rate 75 03/19/22 19:35 Respiratory Rate 19 H 03/19/22 19:35 Pulse Oximetry 99 03/19/22 19:35 MDM - Back Pain/Injury Medical Decision Making Patient presents here with wound check from her surgical wound is well-appearing here no signs of infection she does have some slight drainage but it is not foul-smelling or purulent her white count is normal she has an appoint with her surgeon tomorrow she is to follow-up as scheduled return if worsening she understands agrees to plan. Labs : 03/19/22 21:42 Laboratory Results WBC 10.6 10^3/uL (4.0-10.0) H 03/19/22 21:42 Corrected WBC Cancelled 03/19/22 20:43 RBC 3.63 10^6/uL (4.1-5.3) L 03/19/22 21:42 Hgb 9.9 g/dL (11.5-15.3) L 03/19/22 21:42 Hct 30.5 % (37.0-47.0) L 03/19/22 21:42 MCV 84.0 fl (81-99) 03/19/22 21:42 MCH 27.3 pg (28.0-34.0) L 03/19/22 21:42 MCHC 32.5 g/dL (30.0-36.0) 03/19/22 21:42 RDW 14.0 % (12.1-15.1) 03/19/22 21:42 Plt Count 530 10^3/cmm (130-400) H 03/19/22 21:42 MPV 9.0 fL (7.4-10.4) 03/19/22 21:42 Gran % Cancelled 03/19/22 20:43 Neut % (Auto) 65.0 % 03/19/22 21:42 Lymph % (Auto) 24.2 % 03/19/22 21:42 Wise % (Auto) 6.8 % 03/19/22 21:42 Eos % (Auto) 2.8 % 03/19/22 21:42 Baso % (Auto) 0.8 % 03/19/22 21:42 Neut # (Auto) 6.88 10^3/uL (1.8-7.7) 03/19/22 21:42 Lymph # (Auto) 2.6 10^3/uL (0.8-4.8) 03/19/22 21:42 Wise # (Auto) 0.7 10^3/uL (0.2-0.9) 03/19/22 21:42 Eos # (Auto) 0.3 10^3/uL (0.0-0.8) 03/19/22 21:42 Baso # (Auto) 0.1 10^3/uL (0.0-0.1) 03/19/22 21:42 Absolute Gran (auto) Cancelled 03/19/22 20:43 Nucleated RBC % (auto) 0 % 03/19/22 21:42 Nucleated RBCs # 0.0 /100WBC 03/19/22 21:42 Discharge Plan Discharge Patient Disposition: Home Clinical Impression: Visit for wound check Condition: Stable Prescriptions: No Action ibuprofen 200 mg Tablet 200 - 400 mg PO Q6H PRN (Reason: pain/headache) 0RF montelukast [Singulair] 10 mg tablet 10 mg PO DAILY@0800 0RF tizanidine 4 mg tablet 4 mg PO TID 0RF Benadryl Allergy 25 mg tablet 25 mg PO Q8H PRN (Reason: Allergy Symptoms) 0RF Discharge Orders: Discharge ED (Routine); Ordered 03/19/22 Ordered By: Taras Sherman Referrals: Nitza Mcghee FAMILY LAW ATTORNEY [Primary Care Provider] - Discharge Diet: Advance as tolerated Discharge Activity: Resume usual activity Patient Instructions: Wound Care (General) Coding Level of Care Code ED Telephone Clerk [employer] Office for Chg Fwd Exam Comprehensive
[2022-03-19 21:46] LABS: Basophils # 0.1 10^3/uL (0.0-0.1); Basophils % 0.8 %; Eosinophils # 0.3 10^3/uL (0.0-0.8); Eosinophils % 2.8 %; Hematocrit 30.5 % (37.0-47.0); Hemoglobin 9.9 g/dL (11.5-15.3); Lymphocytes # 2.6 10^3/uL (0.8-4.8); Lymphocytes % 24.2 %; Mean Corpuscular HGB Conc 32.5 g/dL (30.0-36.0); Mean Corpuscular Hemoglobin 27.3 pg (28.0-34.0); Monocytes # 0.7 10^3/uL (0.2-0.9); Monocytes % 6.8 %; Neutrophils # 6.88 10^3/uL (1.8-7.7); Nucleated Red Blood Cells % 0 %; Platelet Count 530 10^3/cmm (130-400); Red Blood Count 3.63 10^6/uL (4.1-5.3); White Blood Count 10.6 10^3/uL (4.0-10.0)
== END 2022-03-19 22:14 | disposition home or self-care (01) ==
PROVIDERS: Emergency Provider Emergency Medicine; PCP Nurse Practitioner Family
DX: Z48.03 Encounter for change or removal of drains (principal); Z98.890 Other specified postprocedural states
CPT/HCPCS: 85025; 99282

== ENCOUNTER 2022-12-08 09:19 | Emergency (ER) | payer MEDICAID, SELFPAY ==
[2022-12-08 09:26] VITALS: BP 137/93; PULSE 100; RESP 16; TEMP 37.2; O2SAT 98; BMI 37.0
--- NOTE | 2022-12-08 09:42 | XRR_ITS ---
PROCEDURE INFORMATION: Exam: XR Chest Exam date and time: 12/08/2022 9:59 AM Age: 52 years old Clinical indication: Cough and fever; Additional info: Fevers TECHNIQUE: Imaging protocol: Radiologic exam of the chest. Views: 1 view. COMPARISON: CR XR chest 1V portable [id number] 03/13/2021 9:08 PM FINDINGS: Lungs: Normal lung volumes. No interstitial or airspace opacities. Pleural spaces: No pleural effusion. No pneumothorax. Heart/Mediastinum: Normal heart size. Normal mediastinal contour. Midline trachea. Bones/joints: No acute abnormalities. XR/XR chest 1V portable [id number] IMPRESSION: No chest radiographic evidence of acute cardiopulmonary disease.
[2022-12-08 10:34] LABS: Rapid Strep A Test Positive (Negative)
[2022-12-08 10:40] LABS: Influenza A by IFA negative (Negative); Influenza B by IFA negative (Negative); SARS Covid-2 Antigen negative (Negative)
--- NOTE | 2022-12-08 10:53 | ED_ITS ---
HPI - URI/Sore Throat General: Chief Complaint: Fever Stated Complaint: n/v and fever Time Seen by Provider: 12/08/22 09:23 History of Present Illness: Patient is a 52-year-old female comes to the ED with sore throat. She endorses having fever, headache and nausea as well for the past 2 days. She endorses having dry heaves but denies any episodes of emesis. She has been able to tolerate p.o. fluids and keep them down. Associated symptoms: Reports fever(s), headache(s) and nausea; Deny abdominal pain, chills, chest pain, diarrhea, nasal congestion or vomiting Review of Systems Const: Reports: fever(s); Denies: chills or fatigue Eyes: Denies: change in vision or eye discomfort ENMT: Reports: throat pain; Denies: odynophagia, nasal discharge or nasal congestion Card: Denies: chest pain, palpitations, edema, swelling of feet/ankles, dyspnea on exertion or orthopnea Resp: Denies: dyspnea, productive cough or non-productive cough GI: Reports: nausea; Denies: abdominal pain, vomiting, diarrhea, constipation or hematochezia : Denies: flank pain, dysuria or hematuria Musc: Denies: neck pain, back pain or extremity swelling Skin/Breast: Denies: rash or new lesions Neuro: Reports: headache(s); Denies: numbness in extremities or weakness in extremities PFSH ED PFSH: Medical History Hepatitis C Hx of cardiac murmur Surgical History H/O knee surgery History of section History of partial hysterectomy Hx of eye surgery Social History Smoking and tobacco status: current every day smoker cigarettes Packs smoked per day: 0.5 Years cigarettes smoked: 7 Quit status (tobacco): has tried quititng Number of times tried to quit tobacco: 4 Second hand smoke exposure: No Alcohol intake: never Marital status: / Number of children: 4 service: No History of recent travel: No Current gender identity: Female Physical Exam Const: COMMON NORMALS: patient oriented x3 and alert GENERAL APPEARANCE: cooperative and comfortable HENMT: COMMON NORMALS: normocephalic HEAD & SCALP: normocephalic MOUTH: Normal oral and palatal mucosa present THROAT: uvula midline, abnormal tonsil bilateral erythema, exudates and hypertrophy 2+ and posterior oropharynx abn ormal erythema and exudates Neck/C-Spine: COMMON NORMALS: supple GENERAL: Yes normal visual inspection Resp: COMMON NORMALS: normal respiratory effort, No retractions, No use of accessory muscles and clear to auscultation bilaterally AUSCULTATION: clear to auscultation bilaterally Cardio: COMMON NORMALS: regular rate, regular rhythm, S1 normal heart sound present, S2 normal heart sound present, No gallops present (Cardio), No clicks present (Cardio), No murmurs present (Cardio) and Peripheral pulses 2+ throughout RATE: regular rate RHYTHM: regular rhythm HEART SOUNDS: S1 normal heart sound present and S2 normal heart sound present PERIPHERAL PULSES: Peripheral pulses 2+ throughout GI: COMMON NORMALS: Normal to inspection, nondistended, normoactive bowel sounds present, Soft to palpation, non-tender and no masses PALPATION: Yes Soft to palpation : COMMON NORMALS: Yes no CVA tenderness BLADDER/KIDNEY EXAM: Yes no CVA tenderness Back/Pelvis: COMMON NORMALS: no CVA tenderness Extremity: COMMON NORMALS: normal to inspection Neuro: COMMON NORMALS: patient oriented x3 SENSORIUM/ORIENTATION: Yes alert GAIT: Yes Normal gait present Skin: GENERAL SKIN EXAM: dry skin Course Vital Signs: Vital signs: Vital Signs Temperature 99.0 F 12/08/22 09:26 Pulse Rate 100 12/08/22 09:26 Respiratory Rate 16 12/08/22 09:26 Blood Pressure 137/93 12/08/22 09:26 Pulse Oximetry 98 12/08/22 09:26 Oxygen Delivery Me thod 12/08/22 09:26 MDM - URI/Sore Throat Medical Decision Making Patient is a 52-year-old female comes to the ED with sore throat, fever and nausea. Vitals are stable. Exam shows tonsil and posterior oropharynx erythema and exudates. Rest of exam is benign. Chest x-ray shows no acute findings. Influenza and COVID were negative. Strep is positive. Patient was given a dose of Rocephin and Zofran here in the ED. She was diagnosed with strep pharyngitis and discharged home with a prescription for an antibiotic and Zofran. Return to ED precautions given. Follow-up with PCP in the next week for reevaluation. Patient understood and agreed with plan. Lab Data I reviewed the patient's lab results. Radiology Impressions Chest X-Ray 12/08/22 09:42 IMPRESSION: No chest radiographic evidence of acute cardiopulmonary disease. Laboratory Results Influenza Type A Ag negative (Negative) 12/08/22 10:00 Influenza Type B Ag negative (Negative) 12/08/22 10:00 SARS-CoV-2 Ag (Rapid) negative (Negative) 12/08/22 10:00 Group A Strep Rapid Positive (Negative) H 12/08/22 10:00 Discharge Plan Discharge Patient Disposition: Home Clinical Impression: Strep pharyngitis Condition: Stable Prescriptions: New clindamycin HCl 150 mg capsule 300 mg PO QID 7 Days Qty: 56 0RF ondansetron 4 mg tablet,disintegrating 4 mg PO Q8H PRN (Reason: nausea and vomiting) Qty: 20 0RF No Action ibuprofen 200 mg Tablet 200 - 400 mg PO Q6H PRN (Reason: pain/headache) montelukast [Singulair] 10 mg tablet 10 mg PO DAILY@0800 tizanidine 4 mg tablet 4 mg PO TID Benadryl Allergy 25 mg tablet 25 mg PO Q8H PRN (Reason: Allergy Symptoms) Discharge Orders: Discharge ED (Routine); Ordered 12/08/22 Ordered By: Dmitriy Salgado Discharge Diet: Regular Discharge Activity: Increase activity as tolerated Patient Instructions: Strep Throat (DC) Activity Restrictions/Additional Instructions: Follow-up with medical provider as directed in the next 5 to 7 days for reevaluation. Take medications as prescribed. Drink plenty fluids and stay hydrated. Return to the ER or your medical provider if condition worsens. Please read and understand discharge instructions. Thank you for choosing [facility] for your healthcare needs today. Please realize this is an emergency room and that we are providing you with a medical screening exam and this may not be complete and all inclusive of all the testing and or work up that you may need to determine your ailment or severity of your illness. It is very important that you follow up as instructed or that you return to the Emergency Department should you have concerns or if your condition changes or worsens in any way. Coding Level of Care Code ED Distribution Superintendent for Dhaval Arevalo Exam Comprehensive
[2022-12-08] MEDS: ondansetron 2 mg/ML SDV 2 mL 4 MG IM (11:58)
[2022-12-08] MEDS: cefTRIAXone 1,000 mg SDV 1000 MG IM (11:58)
== END 2022-12-08 11:50 | disposition home or self-care (01) ==
PROVIDERS: Emergency Provider Physician Assistant
DX: J02.0 Streptococcal pharyngitis (principal); Z20.822 Contact with and (suspected) exposure to COVID-19; Z86.19 Personal history of other infectious and parasitic diseases; F17.210 Nicotine dependence, cigarettes, uncomplicated
CPT/HCPCS: 71045; 87426; 87804; 87880; 96372; 99284; J0696; J2405

== ENCOUNTER → 2024-12-23 18:13 | Outpatient (BNVA) | payer MEDICAID, SELFPAY | DX: J02.9 Acute pharyngitis, unspecified (principal) | CPT/HCPCS: 87880 ==